=== PATIENT | female | born 1990 | race Caucasian/White ===

== ENCOUNTER 2017-01-10 17:49 | Emergency (ER) | payer OTHER ==
[~2017-01-10] VITALS: Ht 167.6 cm; Wt 61.0 kg
[2017-01-10 18:31] LABS: HEMATOCRIT 35.2 % (36.0-46.0); MCH 31.5 PG (29.0-34.0); MCHC 35.5 G/DL (30.0-36.0); MCV 88.7 FL (83-99); MEAN PLAT.VOLUME 11.4 uM^3 (9.5-12.4); PLATELET COUNT 246 K/uL (156-360); RBC DIS.WIDTH-CV 11.2 % (11.8-14.6); RED BLOOD COUNT 3.97 M/uL (3.80-5.20); WHITE BLOOD COUNT 5.7 K/uL (4.1-10.2)
[2017-01-10 18:32] LABS: CARBON DIOXIDE (BICARBONATE) 26.8 MEQ/L (20-31)
[2017-01-10 18:50] LABS: CHLORIDE 99 mEq/L (99-109); POTASSIUM 4.5 mEq/L (3.7-5.4); SODIUM 134 mEq/L (136-147)
[2017-01-10 18:53] LABS: ANION GAP 11 MEQ/L (2-14)
[2017-01-10 18:56] LABS: UREA NITROGEN (BUN) 17 mg/dL (9-23)
[2017-01-10 19:14] LABS: GFR ESTIMATE (CALCULATED) > 59 mL/min/
[2017-01-10 19:15] LABS: GLUCOSE 528 mg/dL (70-99)
[2017-01-10 19:36] LABS: POINT-OF-CARE METER ID UU14100415
[2017-01-10 20:16] VITALS: BP 115/74
[2017-01-12 10:42] LABS: POINT-OF-CARE METER ID UU14100415
== END 2017-01-10 21:23 ==
LOC: EME 17:49
PROVIDERS: Emergency Medicine
DX: E11.65 Type 2 diabetes mellitus with hyperglycemia (principal); Z79.4 Long term (current) use of insulin; Z87.891 Personal history of nicotine dependence
CPT/HCPCS: 80048; 81003; 82803; 82948; 85027; 99281; 99284; J1815; J7030